=== PATIENT | male | born 1960 | race Caucasian/White ===

== ENCOUNTER 2018-07-15 20:14 | Emergency (ER) | payer OTHER ==
[2018-07-15] MEDS ORDERED: HYDROcodone/Acetaminophen 5/325 mg Tablet ONE (20:42)
[2018-07-15] MEDS ORDERED: Ibuprofen 800 MG TAB ONE (20:43)
--- NOTE | 2018-07-15 20:45 | RAD ---
Radiograph left shoulder 3 views: DATE: 07/15/2018 Time: 8:30 PM HISTORY: 57-year-old male status post acute left shoulder trauma FINDINGS: There is a mildly comminuted fracture of the distal portion of the clavicle, with mild inferior displ acement of inferior small comminuted fracture fragments, and minimal displacement of the major distal fragment. No gross disruption of AC joint. No other fracture identified IMPRESSION: Acute, traumatic, mildly displaced left distal clavicular fracture.
== END 2018-07-15 20:54 | disposition home or self-care (01) ==
LOC: SCSER 20:14
DX: S42.032A Displaced fracture of lateral end of left clavicle, initial encounter for closed fracture (principal); V19.9XXA Pedal cyclist (driver) (passenger) injured in unspecified traffic accident, initial encounter

== ENCOUNTER 2019-06-29 11:55 | Outpatient (CLI) | payer OTHER ==
--- NOTE | 2019-06-29 12:20 | RAD ---
Exam: 3 views left foot HISTORY: Pain times many months. Comparison none FINDINGS: Lisfranc alignment is maintained. Preserved. No fracture, cortical irregularity or perioste al reaction. There are degenerative changes in the talonavicular joint space. Diffuse bone demineralization. IMPRESSION: No fracture. Additional findings as above.
== END 2019-06-29 11:56 | disposition home or self-care (01) ==
LOC: SCSRAD 11:55
PROVIDERS: ATTEND Family Medicine
DX: M79.672 Pain in left foot (principal); M19.072 Primary osteoarthritis, left ankle and foot; M81.0 Age-related osteoporosis without current pathological fracture

== ENCOUNTER 2019-07-27 08:58 | Outpatient (CLI) | payer OTHER ==
--- NOTE | 2019-07-27 11:20 | MRI ---
MRI Lower Ext Jt Rt WO Con History: Peroneal tendon tear Comparison: None. Findings: Ligaments: The AITFL and PITFL are intact. Complete absence of the ATFL. No abnormal CFL is appreciated. There is high-grade intraligamentous deltoid degeneration with chronic tearing. The anterior longitudinal and medial plantar oblique portions of the spring ligament are intact. The superomedial band is also intact. Tibial spring ligament is intact. Tendons: The Achilles tendon is intact. The extensor tendons are intact. Severe tenosynovitis of the peroneal tendon sheath above and below the ankle with reactive edema of the posterior aspect lateral malleolus. No subluxation from the retromalleolar groove. No longitudinal split tear is appre ciated. There is also high-grade tenosynovitis of the flexor tendons. There is no flexor tendon tear, extenso r tendon tear, or peroneal tendon tear. The flexor digitorum and flexor hallucis longus tenosynovitis extends to the knot of Matthew. Soft tissues: Normal appearance of the plantar fascia with only minimal thickening. Large ankle joint effusion. 2 well-defined probably fat sequence mass is within the posterior recess likely ossified bodies, measuring up to 1.4 cm in size. Bones: There is complete cartilage loss of the medial ankle mortise involving the medial shoulder wit h subsequent degenerative changes. Osteochondral defect of the anteromedial tibial plafond and with reactive marrow changes. Moderate to tibial plafond osteophyte formation. There is mild the to modera te chondral delamination along the bilateral talus with mild widening of the lateral ankle mortise. Advanced degenerative disease of the syndesmosis. Impression: 1. High-grade degenerative disease of the distal tib-fib joint with large osteophyte formation, joint space narrowing, and sclerosis. 2. Numerous large ossified bodies in the posterior ankle joint recess with large joint effusion likel y sequelae of long-standing displaced cartilage. 3. High-grade tenosynovitis of the flexor tendons and peroneal tendon sheath. This is most likely seq uelae of truncation with the ankle joint given the normal appearance of the underlying tendons. There is no significant interstitial split tearing nor is there a full-thickness rupture of the flexo r or peroneal tendons. 4. Complete cartilage loss of the medial talar dome and medial ankle mortise with subsequent mild wid ening of the lateral ankle mortise due to medial talar subluxation. Extensive chondral delamination and fraying throughout the remainder of the lateral talar shoulder and talar dome. 5. Complete ruptures of the ATFL and CFL. 6. No significant muscle atrophy. 7. Moderate venous varix formation within the tibial tunnel.
--- NOTE | 2019-07-27 12:09 | MRI ---
MRI OF THE LEFT ANKLE WITHOUT CONTRAST: INDICATION: A 58-year-old male with a history of perineal tendon tear with pain in the lateral aspect of the foot below the level of the lateral malleolus. The patient reports that the patient has had left ankle p ain for 2 months. The patient reports multiple ankle injuries in the past. COMPARISON: Left foot radiograph dated June 29, 2019, from [facility] in [facility]. FINDINGS: There is complete disruption of the ATFL and calcaneofibular ligaments. There is some thickening of the posterior talofibular ligament likely reflective of a chronic partial thickness tear. There is p rominent thickening of the anterior tibiofibular and posterior tibiofibular ligaments consistent with chronic partial tears. There is nonvisualization of a normal-appearing deep deltoid consistent with complete chronic tear. There is lateral tilt of the talar dome in relationship to the tibial plafon d with moderate to severe, anterior, medial and central tibiotalar osteoarthrosis. There is severe posterior talocalcaneal osteoarthrosis laterally, best seen on image 18 of series 10. There is some mild talonavicular osteoarthritic change. Calcaneal cuboid articulation appears within normal limits . Sinus tarsi has a normal signal intensity. There is a partial-thickness tear involving the peroneus longus tendon at the level of the lateral ma lleolus that extends beyond the level of the retinaculum and reconstitutes to a normal-appearing tend on at the level of the cubital tunnel. There is flattening and a partial-thickness tear involving th e peroneus brevis at the level of the lateral retinaculum that reconstitutes at the level of the late ral calcaneus. There is tenosynovitis involving the peroneal tendons. There is marked tendinosis of the peroneus longus tendon. The extensor tendons are normal-appearing. There is some fluid signal intensity surrounding the posterior tibialis and posterior digitorum longus tendon just proximal to t he flexor retinaculum. There is also fluid distention of the FHL tendon at the level of the knot of Matthew as well as posterior to the tibiotalar joint. There is some very mild tendinosis of the Achill es tendon. The plantar fascia appears within normal limits. IMPRESSION: 1. 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 There is severe osteoarthrosis involving the posterior subtalar joint lat erally. 2. Severe tendinosis of the peroneus longus tendon with a partial thickness split tear. There is mo derate tendinosis of the peroneus brevis tendon with a partial thickness split tear. There is modera te peroneal tenosynovitis. 3. Moderate flexor hallucis longus tenosynovitis seen posterior to the tibiotalar joint and at the l evel of the knot of Matthew. Mild tenosynovitis at the posterior tibialis and posterior digitorum long us tendon. 4. Mild Achilles tendonosis. POS: [facility]
== END 2019-07-27 08:59 | disposition home or self-care (01) ==
LOC: BICMRI 08:58
PROVIDERS: ATTEND Podiatrist
DX: M79.671 Pain in right foot (principal); M79.672 Pain in left foot; G89.29 Other chronic pain; S86.312A Strain of muscle(s) and tendon(s) of peroneal muscle group at lower leg level, left leg, initial encounter; S86.311A Strain of muscle(s) and tendon(s) of peroneal muscle group at lower leg level, right leg, initial encounter; M19.072 Primary osteoarthritis, left ankle and foot; S93.412A Sprain of calcaneofibular ligament of left ankle, initial encounter; S93.422A Sprain of deltoid ligament of left ankle, initial encounter; S93.492A Sprain of other ligament of left ankle, initial encounter; M65.872 Other synovitis and tenosynovitis, left ankle and foot; M25.872 Other specified joint disorders, left ankle and foot; M25.471 Effusion, right ankle; M19.071 Primary osteoarthritis, right ankle and foot; M65.871 Other synovitis and tenosynovitis, right ankle and foot; S93.411A Sprain of calcaneofibular ligament of right ankle, initial encounter; S93.491A Sprain of other ligament of right ankle, initial encounter